=== PATIENT | male | born 2000 | race Caucasian/White ===

== ENCOUNTER 2019-10-06 10:26 | Emergency (ER) | payer OTHER ==
[~2019-10-06] VITALS: Ht 170.2 cm; Wt 68.2 kg
[2019-10-06] MEDS ORDERED: HYDROCODONE/ACETAMINOPHEN 5-325 MG TABLET PO ONE (11:00)
[2019-10-06] MEDS ORDERED: BACITRACIN 0.9 GM PACKET OINTMENT TP ONE (11:00)
[2019-10-06] MEDS ORDERED: IBUPROFEN 600 MG TABLET PO ONE (11:30)
[2019-10-06 12:00] VITALS: BP 123/76
== END 2019-10-06 12:35 | disposition home or self-care (01) ==
LOC: EMS 10:34
DX: T23.202A Burn of second degree of left hand, unspecified site, initial encounter (principal); S20.412A Abrasion of left back wall of thorax, initial encounter; S40.212A Abrasion of left shoulder, initial encounter; X08.8XXA Exposure to other specified smoke, fire and flames, initial encounter; Y93.89 Activity, other specified; Y92.89 Other specified places as the place of occurrence of the external cause; Y99.8 Other external cause status
CPT/HCPCS: 16020